=== PATIENT | female | born 1945 | race Caucasian/White ===

== ENCOUNTER → 2017-10-16 | Day surgery (SDC) | payer OTHER ==
[~2017-10-16] MED LIST: ACETAMINOPHEN 1000 MG/100 ML 100 ML IV ONE; AMLO5TAB96 PO; ASPI81 PO; BUPIVACAINE/EPINEPHRINE 0.25% PF 30 ML VIAL ONE; LACTATED RINGER'S 1000 ML INJ 1,000 ML ONE; LIDOCAINE 1.5%/EPINEPHrine 1:200,000 PF SOLN 30 ML AMP ONE; MEVA40TA6 PO; MIDAZOLAM HCL 2 MG/2 ML VIAL ONE; MIRA33502 PO; NEOMYCIN/POLYMYXIN/BACITRACIN OINT 15 GM TUBE ONE; ONDANSETRON HCL 4 MG/2 ML VIAL IV PUSH ONE; PROPOFOL 200 MG/20 ML AMP IV ONE; VANCOMYCIN 500 MG VIAL ONE
--- NOTE | 2017-10-16 11:23 | TN ---
cc: ZHEN RICHEY M.D. DATE OF SURGERY: 10/16/2017 PREOPERATIVE DIAGNOSIS Basal cell carcinoma located on the nasal tip and the right nasal ala. POSTOPERATIVE DIAGNOSIS Basal cell carcinoma located on the nasal tip and the right nasal ala. PROCEDURE Wide local excision resulting in a primary defect of the nasal tip of 2 cm x 2 cm including the lesion. The secondary defect is 4 x 3. A bilobed flap reconstruction was elevated. The second one is 1 x 1 cm lesion including the margins on the nasal ala right that required V-Y tissue rearrangement reconstruction with a secondary defect of 2 x 1. SURGEON Zhen Richey MD, FACS. ANESTHESIA LMA general. I also utilized approximately 10 cc of a combination of 1% lidocaine with epinephrine mixed with 0.25% Marcaine in a 2:1 ratio. PROCEDURE IN DETAIL She was properly consented, marked and anesthetized. The skin was sterilized with Microcyn and sterile draping applied. Wide local excision was carried out of the basal cell carcinoma going down to the nasal ala lower lateral cartilage. The frozen section showed that it was very close to the layers of it. Further specimen was sent again. Again, the specimen was down to the cartilage. The defect of course was 2 cm x 2 cm in diameter including the margins. A bilobed flap reconstruction was elevated as a full-thickness, rotated and inset utilizing 5-0 Monocryl suture and 5-0 fast-absorbing gut. The secondary defect was 4 x 3 cm. which totaled 16 cm. The lesion on the right nasal ala was properly excised leaving a defect of 1 cm x 1 cm including the margins. A V-Y tissue rearrangement reconstruction was elevated and inset utilizing Monocryl and fast-absorbing gut with a secondary defect of 2 x 1 cm. totaling 3 cm. Good viability of tissue was noted at the end of the case. Antibiotic ointment was applied and a soft dressing applied. The patient tolerated the procedure well, was awakened, extubated in the operating room and transported back to the post-anesthesia care unit. The patient tolerated the procedure well. MD NUPUR Arredondo/HEATHER /10:56 AM /11:02 AM SLOAN
== END | disposition home or self-care (01) ==
LOC: ESDC 09:15
PROVIDERS: ATTEND Plastic Surgery
DX: C44.311 Basal cell carcinoma of skin of nose (principal)
CPT/HCPCS: 00300; 14060; 14061; 88305; 88331; J0131; J2250; J2405; J3010; J3370; J7120